=== PATIENT | male | born 1980 | race Caucasian/White ===

== ENCOUNTER 2024-04-09 20:00 | Emergency (ER) | payer OTHER ==
[2024-04-09] MEDS ORDERED: Sodium Chloride 0.9% 10 ML Syringe FLUSH PRN (20:55)
[2024-04-09 20:58] LABS: APPEARANCE,URINE CLEAR (Clear); BILIRUBIN,URINE NEGATIVE (Negative); COLOR,URINE LIGHT YELLOW (Yellow); GLUCOSE,URINE NEGATIVE (Negative); KETONES,URINE NEGATIVE (Negative); LEUKOCYTE ESTERASE,URINE NEGATIVE (Negative); NITRITE,URINE NEGATIVE (Negative); OCCULT BLOOD,URINE NEGATIVE (Negative); PROTEIN,URINE NEGATIVE (Negative); UROBILINOGEN,URINE 0.2 (0.2-1.0)
[2024-04-09] MEDS: Ketorolac 15 MG/ML SDV IVPUSH ONE (21:20)
[2024-04-09] MEDS: hydrALAZINE 20 MG/ML SDV IVPUSH ONE (21:20)
[2024-04-09 21:29] LABS: BASOPHILS PERCENT AUTO 0.4 % (0.0-1.0); EOSINOPHILS ABSOLUTE AUTO 0.3 K/mm3 (0.0-0.4); EOSINOPHILS PERCENT AUTO 3.1 % (0.0-6.0); HEMATOCRIT 44.4 % (42.0-52.0); HEMOGLOBIN 15.3 gm/dl (14.0-18.0); IMMATURE GRAN ABSOLUTE AUTO 0.03 K/mm3 (0.00-0.05); IMMATURE GRAN PERCENT AUTO 0.3 % (0.0-0.4); LYMPHOCYTES ABSOLUTE AUTO 2.3 K/mm3 (1.0-4.8); LYMPHOCYTES PERCENT AUTO 23.2 % (24.0-44.0); MEAN CORPUSCULAR HEMOGLOBIN 28.5 pg (28.0-32.0); MEAN CORPUSCULAR HGB CONC 34.5 g/dl (32.0-36.0); MEAN CORPUSCULAR VOLUME 82.8 fl (83.0-99.0); MONOCYTES ABSOLUTE AUTO 0.6 K/mm3 (0.0-0.8); MONOCYTES PERCENT AUTO 6.2 % (0.0-8.0); NEUTROPHILS ABSOLUTE AUTO 6.7 K/mm3 (1.8-7.7); NEUTROPHILS PERCENT AUTO 66.8 % (41.0-71.0); PLATELET COUNT,PLT 286 K/mm3 (150-400); RED BLOOD CELL COUNT 5.36 M/mm3 (4.52-5.90); WHITE BLOOD CELL COUNT,WBC 10.08 K/mm3 (3.9-11.3)
[2024-04-09 21:56] LABS: A/G RATIO 1.1 (1-2); ANION GAP 14.2 (5-15); BILIRUBIN TOTAL 1.2 mg/dL (0.2-1.0); BUN/CREATININE RATIO 13.3 (14-18); CALCIUM 8.9 mg/dL (8.5-10.1); CREATININE 1.2 mg/dL (0.7-1.3); EST CRCL DRUG DOSING (CG) 86.28 mL/min; POTASSIUM,K 3.2 mEq/L (3.5-5.1); PROTEIN TOTAL,TP 7.5 g/dl (6.4-8.2)
[2024-04-10] MEDS: Doxycycline Monohydrate 100 MG Cap PO ONE (00:33)
[2024-04-10] MEDS: cefTRIAXone 500 MG Vial IM ONE (00:34)
[2024-04-10] MEDS: Lidocaine 1% 10 ML MDV ONE (00:37)
== END 2024-04-10 00:39 | disposition home or self-care (01) ==
LOC: JD.ED 20:00
DX: N50.811 Right testicular pain (principal); I10 Essential (primary) hypertension; Z88.8 Allergy status to other drugs, medicaments and biological substances; Z88.2 Allergy status to sulfonamides
CPT/HCPCS: 36415; 76870; 80053; 81003; 85025; 93005; 93975; 96372; 96374; 96375; 99284; A9270; J0360; J0696; J1885; 93010; J3490

== ENCOUNTER 2024-04-13 09:52 | Emergency (ER) | payer OTHER | END 2024-04-13 10:43 | disposition home or self-care (01) | LOC: JD.ED 09:52 | DX: N45.3 Epididymo-orchitis (principal); I10 Essential (primary) hypertension; Z86.16 Personal history of COVID-19; Z79.899 Other long term (current) drug therapy; Z88.9 Allergy status to unspecified drugs, medicaments and biological substances; Z88.8 Allergy status to other drugs, medicaments and biological substances | CPT/HCPCS: 99283 ==

== ENCOUNTER 2024-04-14 08:15 | Emergency (ER) | payer OTHER ==
[2024-04-14] MEDS: Sodium Chloride 0.9% 10 ML Syringe FLUSH PRN (09:22)
[2024-04-14] MEDS: Alum Hydrox/Mag Hydrox/Simeth 30 ML, Lidocaine 2% 15 ML PO ONE (09:22)
[2024-04-14] MEDS: Famotidine 20 MG Tab PO ONE (09:22)
[2024-04-14 09:34] LABS: BASOPHILS ABSOLUTE AUTO 0.1 K/mm3 (0.0-0.2); EOSINOPHILS ABSOLUTE AUTO 0.4 K/mm3 (0.0-0.4); EOSINOPHILS PERCENT AUTO 6.3 % (0.0-6.0); HEMATOCRIT 45.2 % (42.0-52.0); HEMOGLOBIN 15.3 gm/dl (14.0-18.0); IMMATURE GRAN ABSOLUTE AUTO 0.02 K/mm3 (0.00-0.05); IMMATURE GRAN PERCENT AUTO 0.3 % (0.0-0.4); LYMPHOCYTES ABSOLUTE AUTO 1.5 K/mm3 (1.0-4.8); LYMPHOCYTES PERCENT AUTO 24.1 % (24.0-44.0); MEAN CORPUSCULAR HEMOGLOBIN 28.6 pg (28.0-32.0); MEAN CORPUSCULAR HGB CONC 33.8 g/dl (32.0-36.0); MEAN CORPUSCULAR VOLUME 84.5 fl (83.0-99.0); MEAN PLATELET VOLUME 10.3 fl (9.4-12.4); MONOCYTES ABSOLUTE AUTO 0.5 K/mm3 (0.0-0.8); MONOCYTES PERCENT AUTO 7.5 % (0.0-8.0); NEUTROPHILS ABSOLUTE AUTO 3.7 K/mm3 (1.8-7.7); NEUTROPHILS PERCENT AUTO 60.8 % (41.0-71.0); PLATELET COUNT,PLT 275 K/mm3 (150-400); RED BLOOD CELL COUNT 5.35 M/mm3 (4.52-5.90); WHITE BLOOD CELL COUNT,WBC 6.02 K/mm3 (3.9-11.3)
[2024-04-14 09:47] LABS: A/G RATIO 1.2 (1-2); ALBUMIN 3.7 g/dl (3.4-5.0); ANION GAP 12.9 (5-15); BILIRUBIN TOTAL 1.2 mg/dL (0.2-1.0); BUN/CREATININE RATIO 10.8 (14-18); CALCIUM 8.2 mg/dL (8.5-10.1); CREATININE 1.2 mg/dL (0.7-1.3); EST CRCL DRUG DOSING (CG) 83.65 mL/min; POTASSIUM,K 3.9 mEq/L (3.5-5.1); PROTEIN TOTAL,TP 6.9 g/dl (6.4-8.2)
== END 2024-04-14 13:50 | disposition home or self-care (01) ==
LOC: JD.ED 08:15
DX: R07.9 Chest pain, unspecified (principal); T39.395A Adverse effect of other nonsteroidal anti-inflammatory drugs [NSAID], initial encounter; T36.8X5A Adverse effect of other systemic antibiotics, initial encounter
CPT/HCPCS: 36415; 71045; 80053; 83690; 84484; 85025; 93005; 99285; A9270; J3490; 93010; 99284

== ENCOUNTER 2024-04-20 08:25 | Emergency (ER) | payer OTHER ==
[2024-04-20] MEDS: Sodium Chloride 0.9% 1,000 ML IV STA (09:44)
[2024-04-20] MEDS: Sodium Chloride 0.9% 10 ML Syringe FLUSH ONE (09:44)
[2024-04-20] MEDS: Ketorolac 15 MG/ML SDV IVPUSH ONE (09:44)
[2024-04-20 09:45] LABS: BASOPHILS ABSOLUTE AUTO 0.1 K/mm3 (0.0-0.2); BASOPHILS PERCENT AUTO 0.4 % (0.0-1.0); EOSINOPHILS ABSOLUTE AUTO 0.3 K/mm3 (0.0-0.4); EOSINOPHILS PERCENT AUTO 2.2 % (0.0-6.0); HEMATOCRIT 44.9 % (42.0-52.0); HEMOGLOBIN 15.6 gm/dl (14.0-18.0); IMMATURE GRAN ABSOLUTE AUTO 0.05 K/mm3 (0.00-0.05); IMMATURE GRAN PERCENT AUTO 0.4 % (0.0-0.4); LYMPHOCYTES ABSOLUTE AUTO 1.3 K/mm3 (1.0-4.8); LYMPHOCYTES PERCENT AUTO 9.9 % (24.0-44.0); MEAN CORPUSCULAR HEMOGLOBIN 29.1 pg (28.0-32.0); MEAN CORPUSCULAR HGB CONC 34.7 g/dl (32.0-36.0); MEAN CORPUSCULAR VOLUME 83.6 fl (83.0-99.0); MEAN PLATELET VOLUME 10.1 fl (9.4-12.4); MONOCYTES ABSOLUTE AUTO 0.8 K/mm3 (0.0-0.8); MONOCYTES PERCENT AUTO 5.9 % (0.0-8.0); NEUTROPHILS ABSOLUTE AUTO 10.9 K/mm3 (1.8-7.7); NEUTROPHILS PERCENT AUTO 81.2 % (41.0-71.0); PLATELET COUNT,PLT 261 K/mm3 (150-400); RED BLOOD CELL COUNT 5.37 M/mm3 (4.52-5.90); WHITE BLOOD CELL COUNT,WBC 13.46 K/mm3 (3.9-11.3)
[2024-04-20] MEDS: Sodium Chloride 0.9% 10 ML Syringe FLUSH PRN (09:46)
[2024-04-20 09:56] LABS: APPEARANCE,URINE CLEAR (Clear); BILIRUBIN,URINE NEGATIVE (Negative); COLOR,URINE YELLOW (Yellow); GLUCOSE,URINE NEGATIVE (Negative); KETONES,URINE NEGATIVE (Negative); LEUKOCYTE ESTERASE,URINE NEGATIVE (Negative); NITRITE,URINE NEGATIVE (Negative); OCCULT BLOOD,URINE TRACE-INTACT (Negative); PH,URINE 5.5 (5.0-8.0); PROTEIN,URINE 1+ (Negative); UROBILINOGEN,URINE 0.2 (0.2-1.0)
[2024-04-20 10:05] LABS: EPITHELIAL CELLS,URINE 0-5 /hpf (0-5); WBC,URINE 0-5 /hpf (0-5)
[2024-04-20 10:06] LABS: BACTERIA,URINE FEW /hpf (FEW); MUCUS,URINE MANY /hpf (FEW)
[2024-04-20] MEDS: Iopamidol 612 MG/ML 100 ML Bottle IVPUSH ONE (10:13)
[2024-04-20 10:14] LABS: A/G RATIO 1.1 (1-2); ALBUMIN 3.7 g/dl (3.4-5.0); ANION GAP 11.8 (5-15); BILIRUBIN TOTAL 1.6 mg/dL (0.2-1.0); BUN/CREATININE RATIO 16.4 (14-18); CALCIUM 8.6 mg/dL (8.5-10.1); CREATININE 1.1 mg/dL (0.7-1.3); EST CRCL DRUG DOSING (CG) 91.25 mL/min; POTASSIUM,K 3.8 mEq/L (3.5-5.1)
== END 2024-04-20 12:25 | disposition home or self-care (01) ==
LOC: JD.ED 08:25
DX: K57.12 Diverticulitis of small intestine without perforation or abscess without bleeding (principal); I10 Essential (primary) hypertension; Z86.16 Personal history of COVID-19; Z79.899 Other long term (current) drug therapy; Z88.9 Allergy status to unspecified drugs, medicaments and biological substances; Z88.8 Allergy status to other drugs, medicaments and biological substances; Z91.048 Other nonmedicinal substance allergy status
CPT/HCPCS: 36415; 74177; 80053; 81001; 82248; 82570; 85025; 87086; 96361; 96374; 99284; J1885; J3490; J7030; Q9967

== ENCOUNTER 2024-08-11 05:46 | Emergency (ER) | payer OTHER ==
[2024-08-11] MEDS: cloNIDine 0.1 MG Tab PO ONE (06:20)
== END 2024-08-11 07:47 | disposition home or self-care (01) ==
LOC: JD.ED 05:46
DX: J06.9 Acute upper respiratory infection, unspecified (principal); I10 Essential (primary) hypertension; Z86.16 Personal history of COVID-19; Z79.899 Other long term (current) drug therapy; Z88.8 Allergy status to other drugs, medicaments and biological substances
CPT/HCPCS: 87428-QW; 99284; A9270-GY

== ENCOUNTER 2024-11-23 09:49 | Emergency (ER) | payer BC, OTHER ==
[2024-11-23 10:46] LABS: BASOPHILS PERCENT AUTO 0.6 % (0.0-1.0); EOSINOPHILS ABSOLUTE AUTO 0.4 K/mm3 (0.0-0.4); EOSINOPHILS PERCENT AUTO 5.4 % (0.0-6.0); HEMATOCRIT 49.2 % (42.0-52.0); HEMOGLOBIN 16.8 gm/dl (14.0-18.0); IMMATURE GRAN ABSOLUTE AUTO 0.02 K/mm3 (0.00-0.05); IMMATURE GRAN PERCENT AUTO 0.3 % (0.0-0.4); LYMPHOCYTES ABSOLUTE AUTO 1.8 K/mm3 (1.0-4.8); LYMPHOCYTES PERCENT AUTO 25.7 % (24.0-44.0); MEAN CORPUSCULAR HEMOGLOBIN 28.2 pg (28.0-32.0); MEAN CORPUSCULAR HGB CONC 34.1 g/dl (32.0-36.0); MEAN CORPUSCULAR VOLUME 82.6 fl (83.0-99.0); MEAN PLATELET VOLUME 9.6 fl (9.4-12.4); MONOCYTES ABSOLUTE AUTO 0.5 K/mm3 (0.0-0.8); MONOCYTES PERCENT AUTO 7.3 % (0.0-8.0); NEUTROPHILS ABSOLUTE AUTO 4.2 K/mm3 (1.8-7.7); NEUTROPHILS PERCENT AUTO 60.7 % (41.0-71.0); PLATELET COUNT,PLT 261 K/mm3 (150-400); RED BLOOD CELL COUNT 5.96 M/mm3 (4.52-5.90); WHITE BLOOD CELL COUNT,WBC 6.86 K/mm3 (3.9-11.3)
[2024-11-23] MEDS: Ketorolac 30 MG/ML SDV IVPUSH ONE (10:55)
[2024-11-23] MEDS: Sodium Chloride 0.9% 10 ML Syringe FLUSH PRN (10:55)
[2024-11-23] MEDS: Metoclopramide 10 MG/2 ML SDV IVPUSH ONE (10:55)
[2024-11-23] MEDS: diphenhydrAMINE 50 MG/ML SDV IVPUSH ONE (10:55)
[2024-11-23 10:56] LABS: A/G RATIO 1.1 (1-2); ALBUMIN 4.2 g/dl (3.4-5.0); ANION GAP 15.7 (5-15); BILIRUBIN TOTAL 0.9 mg/dL (0.2-1.0); CALCIUM 9.2 mg/dL (8.5-10.1); EST CRCL DRUG DOSING (CG) 99.36 mL/min; POTASSIUM,K 3.7 mEq/L (3.5-5.1)
== END 2024-11-23 13:41 | disposition home or self-care (01) ==
LOC: JD.ED 09:49
DX: I10 Essential (primary) hypertension (principal); Z88.8 Allergy status to other drugs, medicaments and biological substances; Z79.899 Other long term (current) drug therapy; Z86.16 Personal history of COVID-19
CPT/HCPCS: 36415; 70450; 70551; 80053; 84484; 85025; 93005; 96374; 96375; 99285; J1200; J1885; J2765; 93010; 99284